=== PATIENT | male | born 1955 | race Hispanic/Latino ===

== ENCOUNTER 2024-05-03 09:46 | Emergency (ER) | payer MEDICARE, OTHER ==
[~2024-05-03] VITALS: Ht 167.6 cm; Wt 79.8 kg
[~2024-05-03 09:46] MED LIST: ANUCORT-HC25 MG; ATORVASTATIN CA20 MG PO; HYDROCODON-ACE1 EA12 PO; LEVAQUIN500 MG PO; SURFAK240 MG PO; TRIAMCINOLONE A15 G2 TOP
[2024-05-03 10:00] VITALS: TEMP 98.3
[2024-05-03 13:15] VITALS: PULSE 65; RESP 16; O2SAT 100
[2024-05-03] MEDS: IBUPROFEN 400 MG TAB PO ONE (13:39)
[2024-05-03] MEDS: HYDROCODONE/APAP 5MG-325MG TAB PO ONE (13:40)
[2024-05-03] MEDS ORDERED: IBUPROFEN 400 MG TAB ONE (13:41)
[2024-05-03] MEDS ORDERED: HYDROCODONE/APAP 5MG-325MG TAB ONE (13:41)
[2024-05-03] MEDS ORDERED: ULTRAM 50MG50 MG PO (13:45)
== END 2024-05-03 14:00 | disposition home or self-care (01) ==
LOC: ER 10:05
DX: M25.512 Pain in left shoulder (principal); W10.8XXA Fall (on) (from) other stairs and steps, initial encounter; Y93.01 Activity, walking, marching and hiking; E78.5 Hyperlipidemia, unspecified; E78.00 Pure hypercholesterolemia, unspecified
CPT/HCPCS: 71101; 99283